=== PATIENT | male | born 1960 | race Asian ===

== ENCOUNTER → 2016-12-13 | Outpatient (CLI) | payer BC ==
--- NOTE | 2016-12-13 11:18 | DIAGNOSTIC IMAGING REPORT ---
LUMBAR SPINE 5 VIEWS HISTORY: LOW BACK PAIN COMPARISON: None. FINDINGS: There is no fracture. No subluxation. Disc spaces are relatively preserved for age within the lumbar spine. Mild facet degenerative changes within the lower lumbar spine. The sacrum is intact. 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 IMPRESSION: 1. No fracture or subluxation within the lumbar spine. 2. Mild facet degenerative changes within the lower lumbar spine. 3. Disc spaces are relatively preserved. 4. 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 Electronically signed by: Richard Choudhary M.D. 12/13/2016 11:16 AM Dictated Date/Time: 12/13/2016 11:13 AM
== END | disposition home or self-care (01) ==
LOC: C.RAD 10:20
PROVIDERS: ATTEND Family Medicine
DX: M54.5 Low back pain (principal); M89.8X8 Other specified disorders of bone, other site; R93.7 Abnormal findings on diagnostic imaging of other parts of musculoskeletal system